=== PATIENT | male | born 1960 | race Caucasian/White ===

== ENCOUNTER → 2019-01-11 | Day surgery (SDC) | payer BC ==
[~2019-01-11] MED LIST: CIPRO500 MG PO; DIOVAN160 MG PO; FAMCICLOVIR500 MG PO; FENTANYL CITRATE/PF 100MCG/2 ML INJ ONE; HYOSCYAMINE SULFATE 0.5 MG/ML INJ ONE; LEVAQUIN500 MG PO; LEVOTHYROXINE50 MCG PO; LOSARTAN POTASS25 MG PO; MIDAZOLAM HCL 2 MG/2 ML VIAL ONE; NORCO 7.5-3251 EACH PO; PHENYLEPHRINE HCL 1% 10 MG/ML VIAL ONE; PROPOFOL IV EMULSION 10 MG/ML 50 ML VIAL ONE; VALACYCLOVIR500 MG PO; ZOFRAN ODT4 MG PO; ZOFRAN ODT8 MG PO
--- OUTSIDE RECORDS SUMMARY | 2019-01-11 06:56 | XMS REPORT | Clinical Summary ---
Author Author [facility] Address Unknown Phone Unavailable Care Team Providers Care Ship Pilot Name Role Phone Chong Guadalupe MD PCP Allergies Comments Active Allergy Reactions Severity Noted Date Sulfa (Sulfonamide Rash Low 06/19/2017 Antibiotics) Medications End Date Status Medication Sig Dispensed Refills Start Date Active valsartan (DIOVAN) 160 MG Take 160 mg 0 tablet by mouth every morning. Active tadalafil (CIALIS, Take 7 mg by 0 ADCIRCA) 10 MG tablet mouth daily. Active Problems Problem Noted Date Prostate cancer 07/04/2017 Family History Medical History Relation Name Comments Cancer Brother Prostate cancer Brother Cancer Father Lung cancer Father Breast cancer Mother Cancer Mother Relation Name Status Comments Brother Alive Father Mother Social History Date Tobacco Use Types Packs/Day Years Used Never Smoker Smokeless Tobacco: Never Used Alcohol Use Drinks/Week oz/Week Comments No Sex Assigned at Date Recorded Not on file Industry Job Start Date Occupation Not on file Not on file Not on file Travel End Travel History Travel Start No recent travel history available. Last Filed Vital Signs Not on file Plan of Treatment Health Maintenance Due Date Last Done Comments COLON CANCER SCREENING 2008 SHINGLES VACCINES (#1) 2008 INFLUENZA VACCINE 06/13/2018 Implants Device Identifier Shelf Expiration Date Model / Serial / Lot Implanted Type Area Manufactur er 3 / / Hemostat Absrbl 4x4in Surgicel Snow Cardiovasc N/A: N/A ETHICON - [id number] jairo [facility] Implanted: Qty: 1 on 07/04/2017 by Implants Chirag Wilder MD [id number] / / Clip Ligtng Hem-O-Ajay Endoscpc Aplr Surgical N/A: N/[facility] [id number] Implants; CLOSURE Implanted: 07/04/2017 (Quantity not Expanders; SYSTEMS on file) Extenders; Surgical Wires [id number] / / Kit Selnt Fibrin Humn Hmsts Surgy Surgical N/A: N/A ETHICON 5ml Evicel - [id number] Implants; US-EH Implanted: 07/04/2017 (Quantity not Expanders; on file) Extenders; Surgical Wires [id number] / / Clip Ligtng Hem-O-Ajay Endoscpc Aplr Surgical N/A: N/A EDD Ply Lg - [id number] Implants; CLOSURE Implanted: 07/04/2017 (Quantity not Expanders; SYSTEMS on file) Extenders; Surgical Wires [id number] / / Clip Ligtng Hem-O-Ajay Endoscpc Aplr Surgical N/A: N/A EDD Plymr Lg - [id number] Implants; CLOSURE Implanted: 07/04/2017 (Quantity not Expanders; SYSTEMS on file) Extenders; Surgical Wires [id number] / / Drain Wnd 1/4in 49in Rnd Mid Surgical BARD Perfrtn - [id number] Implants; MEDICAL Implanted: Qty: 1 on 07/04/2017 by Expanders; DIVISION Chirag Wilder MD Extenders; Surgical Wires Results Not on fileafter 01/10/2018 Insurance Payer Benefit Subscriber ID Type Phone Address Plan / Group VERONIKA XIMENARABIA OPEN xxxxxxxxxxx HMO ACCESS/NET WORK Advance Directives Patient has advance care planning documents, and code status on file. For more i nformation, please contact: Milton Franklin [address] [place] [address] Date Inactivated Comments Code Status Date Activated 07/06/2017 7:59 PM Full Code 07/04/2017 1:17 PM Code Status decision reached by: Patient
--- OUTSIDE RECORDS SUMMARY | 2019-01-11 06:56 | XMS REPORT ---
Author Author [facility] Address Unknown Phone Unavailable Care Team Providers Care Director Hospice Operations Name Role Phone Lily STAUFFER Unavailable Unavailable Problems This patient has no known problems. Allergies, Adverse Reactions, Alerts This patient has no known allergies or adverse reactions. Medications This patient has no known medications. Results Test Description Test Time Test Comments Text Results Atomic Results Result Comments ABDOMEN COMP INCL UPR or DECUB [place] [address] Patient Name: NADER FRASER MR #: [id number] : 1960 Age/Sex: 57/M Req #: [id number] Adm Physician: MIS STAUFFER MD Ordered by: HERRERA ALCOCER MD Report #: [id number] Location: MED/SURG2 Room/Bed: [facility] Procedure: DX/ABDOMEN COMP INCL UPR or DECUB Exam Date: 07/14/17 Exam Time: 0520 REPORT STATUS: Signed PROCEDURE: ABDOMEN COMP INCL UPR OR DECUB INDICATION: Small bowel obstruction. COMPARISON: [facility], DX, ABDOMEN ACUTE SERIES W/PA CXR, 07/13/2017, 5:08. FINDINGS: Patient has situs inversus totalis. Enteric tube is noted under the right hemidiaphragm coiled in the fundus, with distal tip likely in the stomach antrum. Persistent diffuse small bowel dilation, with multiple loops of bowel measuring approximately 4.8 cm. No air is noted in the rectum. No pneumoperitoneum. CONCLUSION: No significant interval change in diffuse small bowel air-filled, dilated loops, likely reflecting ileus or small bowel obstruction Osbaldo Gerard M.D. Dictated by: Osbaldo Gerard M.D. on 08/03/2017 at 19:37 Electronically approved by: Osbaldo Gerard M.D. on 08/03/2017 at 19:37 Dictated By: OSBALDO GERARD MD 36 Transcribed By: PRICILA on 08/03/171936 COPY TO: HERRERA ALCOCER MD ABDOMEN ACUTE SERIES W/PA CXR [place] [address] Patient Name: NADER FRASER MR #: [id number] : 1960 Age/Sex: 56/M Req #: [id number] Adm Physician: MIS STAUFFER MD Ordered by: MIS STAUFFER MD Report #: [id number] Location: MED/SURG2 Room/Bed: [facility] Procedure: [id number] DX/ABDOMEN ACUTE SERIES W/PA CXR Exam Date: 07/13/17 Exam Time: 0510 REPORT STATUS: Signed ABDOMEN ACUTE SERIES W/PA CXR Clinical history: Small bowel obstruction Technique: AP view abdomen Comparison: 07/11/2017 Findings: NG tube is again noted over the right upper quadrant, in keeping with situs inversus. There is diffuse gaseous distention of bowel loops, for example measuring up to 6 cm. This is without significant interval change. Impression: Stable diffuse gaseous distention of bowel from 07/11/2017. Scattered free air seen on prior CT not well appreciated. Signed by: Dr Poornima Mason MD on 07/14/2017 9:15 PM Dictated By: POORNIMA MASON MD 14 Transcribed By: REED on 07/14/172114 COPY TO: MIS STAUFFER MD ABDOMEN COMP INCL UPR or DECUB [place] [address] Patient Name: NADER FRASER MR #: [id number] : 1960 Age/Sex: 56/M Req #: [id number] Adm Physician: MIS STAUFFER MD Ordered by: HERRERA ALCOCER MD Report #: [id number] Location: [facility]/SURG3 Room/Bed: [facility] Procedure: [id number] DX/ABDOMEN COMP INCL UPR or DECUB Exam Date: 07/11/17 Exam Time: 1200 REPORT STATUS: Signed PROCEDURE: ABDOMEN COMP INCL UPR OR DECUB TECHNIQUE: INDICATION: Small bowel obstruction. COMPARISON: [facility], DX, ABDOMEN ACUTE SERIES W/PA CXR, 03/08/2016, 5:47. FINDINGS: See conclusion. CONCLUSION: 1. Enteric tube is coiled projecting in the stomach fundus, with distal tip projecting in the region of the distal body/antrum in the right upper quadrant (patient has situs inversus totalis). 2. Multiple dilated, air-filled loops of small bowel in the abdomen, with maximal measurement of approximately a 6.2 cm. Only a small amount of is noted in the rectum. 3. Lung bases are clear. 4. Left pelvic phlebolith. Mild degenerative changes at the symphysis pubis and bilateral hip joints. No acute bony abnormalities. 5. Preliminary report provided by Dr. Gerard 07/11/2017 at 1312 hrs. Osbaldo Gerard M.D. Dictated by: Osbaldo Gerard M.D. on 07/12/2017 at 14:02 Electronically approved by: Osbaldo Gerard M.D. on 07/12/2017 at 14:02 Dictated By: OSBALDO GERARD MD 140 Transcribed By: PRICILA on 07/12/17 140 COPY TO: HERRERA ALCOCER MD CT ABDOMEN/PELVIS W [place] [address] Patient Name: NADER FRASER MR #: [id number] : 1960 Age/Sex: 56/M Req #: [id number] Adm Physician: MIS STAUFFER MD Ordered by: MARI MONTANA MD Report #: [id number] Location: MED/SURG3 Room/Bed: [facility] Procedure: [id number] CT/CT ABDOMEN/PELVIS W Exam Date: 07/10/17 Exam Time: 1430 REPORT STATUS: Signed PROCEDURE: CT ABDOMEN AND PELVIS WITH CONTRAST TECHNIQUE: The abdomen and pelvis were scanned utilizing a multidetector helical scanner from the diaphragm to the lesser trochanter after the IV administration of 100 cc of Isovue 370 and the oral administration of dilute Gastrografin, prior history of. Coronal and sagittal multiplanar reformations were obtained. COMPARISON: [facility], CT, CT ABDOMEN/PELVIS W, 02/15/2016, 10:59. INDICATIONS: SMALL BOWEL OBSTRUCTION, POST PROSTATE REMOVAL ON MONDAY, prior history of colectomy due to colon cancer and history of Hirschsprung's disease FINDINGS: Patient has situs inversus totalis. LOWER THORAX: Linear subsegmental atelectasis or scarring in the left lower lung. HEPATOBILIARY: Diffuse hepatic steatosis with several wedge-shaped peripherally located areas of increased parenchymal attenuation in hepatic segment VIII and V, adjacent to the gallbladder fossa, likely representing areas of fatty sparing (for example, series 2, images 18 and 23). No focal lesions. No biliary ductal dilation. Gallbladder is unremarkable. SPLEEN: No splenomegaly. PANCREAS: No focal masses or ductal dilatation. ADRENALS: No adrenal nodules. KIDNEYS/URETERS: No hydronephrosis, stones, or solid mass lesions. PELVIC ORGANS/BLADDER: Mild to moderate circumferential bladder wall thickening. Townsend catheter in place. No focal lesions. Status post prostatectomy. PERITONEUM / RETROPERITONEUM: Multiple foci of air in the peritoneum, retroperitoneal, and subcutaneous tissues, likely postsurgical. LYMPH NODES: No lymphadenopathy. VESSELS: Bilateral calcification of the abdominal aorta. Celiac trunk, superior and inferior mesenteric, and bilateral renal arteries are patent. Portal, superior mesenteric, and splenic veins are patent. GI TRACT: Moderate to marked thickening of the anastomotic site between the small and residual large bowel in the left lower quadrant, with mild associated stranding. No definite stricture. Multiple dilated small bowel loops involving the distal jejunum and ileum are noted proximal to the anastomotic site, with maximal measurement of 4.6 cm. Moderate circumferential thickening of the rectum (series 2 image 79 and sagittal image 77). Stomach is unremarkable. BONES AND SOFT TISSUES: No acute bony abnormalities. Degen erative changes in the lower thoracic and to a lesser degree lower lumbosacral spine. Multiple subcutaneous air foci, with linear air collection tracking along the left transverse abdominis muscle (series 2 image 40). IMPRESSION: 1. Multiple foci of air in the peritoneum, retroperitoneum, subcutaneous tissues are likely postsurgical. 2. Findings in the anastomotic site may represent colitis, particularly given the findings in the rectum, however, new or recurrent neoplasm is also a consideration. 3. Findings in the small bowel likely represent ileus. No definite stricture is noted at the anastomotic site to suggest obstruction. 4. Mild circumferential thickening of the bladder. Correlate for cystitis. 5. Diffuse hepatic steatosis. 6. Findings discussed with Dr. Montana in the ER and preliminary report provided July 10, 2017 at 1515 Osbaldo Gerard M.D. Dictated by: Osbaldo Gerard M.D. on 07/12/2017 at 18:12 Electronically approved by: Osbaldo Gerard M.D. on 07/12/2017 at 18:12 Dictated By: OSBALDO GERARD MD 11 Transcribed By: PRICILA on 07/12/171811 COPY TO: MARI MONTANA MD
[2019-01-11 09:55] VITALS: BP 134/85
--- NOTE | 2019-01-11 15:23 | Operative Report ---
DATE OF PROCEDURE: 01/11/2019 SURGEON: Parmjit Sanford MD PROCEDURE: Colonoscopy with polypectomy. INDICATIONS FOR COLONOSCOPY: Surveillance colonoscopy, the patient is status post colon resection for colon cancer. MEDICATIONS: The patient was done under MAC. Please see anesthesiologist's note. PROCEDURE IN DETAIL: With the patient in the left lateral decubitus position, flexible fiberoptic Olympus colonoscope was inserted into the rectum with ease and advanced to the cecum. The cecum was at approximately 35 cm from the anal verge as the patient has had multiple colon resections in the remote past. Anastomosis was noted at approximately 26 cm from the anal verge and approximately 10 polyps were removed, 5 per snare electrocautery and 5 per hot biopsy forceps and those were just distal to the anastomosis. The rectum grossly appeared to be within normal limits. There were some postoperative changes noted in the distal rectum. The scope was then retroflexed into the distal rectum and it appeared to be within normal limits. The scope was then straightened out and it was subsequently withdrawn. The patient tolerated procedure well. IMPRESSION: 1. Cecum at approximately 35 cm from anal verge. 2. Anastomosis at approximately 26 cm from anal verge, intact. 3. Ten polyps, 5 snared and 5 hot biopsied just distal to anastomosis. PLAN: Followup histology. Initiate high-fiber, low-fat diet. Initiate high-fiber supplement. Parmjit Sanford MD [facility]/MODL /[id number] cc: MD Zion Griffiths DO
== END | disposition home or self-care (01) ==
LOC: OR 06:53
PROVIDERS: ATTEND Internal Medicine Gastroenterology
DX: Z08 Encounter for follow-up examination after completed treatment for malignant neoplasm (principal); Z85.038 Personal history of other malignant neoplasm of large intestine; Z98.0 Intestinal bypass and anastomosis status; Q43.1 Hirschsprung's disease; R19.7 Diarrhea, unspecified; H54.61 Unqualified visual loss, right eye, normal vision left eye; I10 Essential (primary) hypertension; E03.9 Hypothyroidism, unspecified; Z88.2 Allergy status to sulfonamides; Z01.810 Encounter for preprocedural cardiovascular examination; Z68.28 Body mass index [BMI] 28.0-28.9, adult
CPT/HCPCS: 45384; 45385; 93005; J1980; J2250; J2370; J2704; 45378

== ENCOUNTER 2019-01-19 14:16 | Inpatient (IN) | payer BC ==
[~2019-01-19] VITALS: Ht 167.6 cm; Wt 83.1 kg
[~2019-01-19 14:16] MED LIST changes: -FAMCICLOVIR500 MG PO; -FENTANYL CITRATE/PF 100MCG/2 ML INJ ONE; -HYOSCYAMINE SULFATE 0.5 MG/ML INJ ONE; -MIDAZOLAM HCL 2 MG/2 ML VIAL ONE; -PHENYLEPHRINE HCL 1% 10 MG/ML VIAL ONE; -PROPOFOL IV EMULSION 10 MG/ML 50 ML VIAL ONE; -VALACYCLOVIR500 MG PO
--- OUTSIDE RECORDS SUMMARY | 2019-01-19 14:20 | XMS REPORT | Clinical Summary ---
Author Author [facility] Address Unknown Phone Unavailable Care Team Providers Care Sign Installer Name Role Phone Chong Guadalupe MD PCP [...] Surgicel Snow Cardiovasc N/A: N/A ETHICON - [id number] jairo [facility] Implanted: Qty: 1 on 07/04/2017 by Implants Chirag Wilder MD [id number] / / Clip Ligtng Hem-O-Aajy Endoscpc Aplr Surgical N/A: N/A EDD [facility] - [id number] Implants; CLOSURE Implanted: 07/04/2017 (Quantity not Expanders; SYSTEMS on file) Extenders; Surgical Wires [id number] / / Kit Selnt Fibrin Humn Hmsts Surgy Surgical N/A: N/A ETHICON 5ml Evicel - [id number] Implants; US-EH Implanted: 07/04/2017 (Quantity not Expanders; on file) Extenders; Surgical Wires [id number] / / Clip Ligtng Hem-O-Ajay Endoscpc Aplr Surgical N/A: N/A EDD [facility] Lg - [id number] Implants; CLOSURE Implanted: 07/04/2017 (Quantity not Expanders; SYSTEMS on file) Extenders; Surgical Wires [id number] / / Clip Ligtng Hem-O-Ajay Endoscpc Aplr Surgical N/A: N/A EDD Plymr Lg - [id number] Implants; CLOSURE Implanted: 07/04/2017 (Quantity not Expanders; SYSTEMS on file) Extenders; Surgical Wires [id number] / / Drain Wnd 1/4in 49in Rnd Mid Surgical BARD Perfrtn - [id number] Implants; MEDICAL Implanted: Qty: 1 on 07/04/2017 by Expanders; DIVISION Chirag Wilder MD Extenders; Surgical Wires Results Not on fileafter 01/18/2018 Insurance Payer Benefit Subscriber ID Type Phone Address Plan / Group VERONIKA XIMENARABIA OPEN xxxxxxxxxxx HMO ACCESS/NET WORK Advance Directives Patient has advance care planning documents, and code status on file. For more i nformation, please contact: Milton Franklin [address] [place] [address] Date Inactivated Comments Code Status Date Activated 07/06/2017 7:59 PM Full Code 07/04/2017 1:17 PM Code Status decision reached by: Patient
[2019-01-19] MEDS ORDERED: HYOSCYAMINE SULFATE 0.5 MG/ML INJ ONE (14:29)
[2019-01-19] MEDS ORDERED: PROPOFOL IV EMULSION 10 MG/ML 50 ML VIAL ONE (14:29)
[2019-01-19] MEDS ORDERED: GLUCAGON FOR INJ 1 MG VIAL ONE (14:29)
[2019-01-19] MEDS ORDERED: LIDOCAINE HCL 2% LOCAL INJ 5 ML SDV VIAL INJ ONE (14:29)
[2019-01-19] MEDS ORDERED: PROPOFOL IV EMULSION 10 MG/ML 20 ML VIAL ONE (14:32)
[2019-01-19] MEDS ORDERED: EPHEDRINE SULFATE INJ 50 MG/10 ML SYR ONE (14:32)
[2019-01-19] MEDS ORDERED: PANTOPRAZOLE 40 MG 10ML VIAL IV NR (14:48)
[2019-01-19] MEDS ORDERED: SODIUM CHLORIDE 0.9% 1000ML 1,000 ML IV STA (14:48)
[2019-01-19 15:10] LABS: BASOPHILS # (AUTO) 0.1 (0.0-0.1); BASOPHILS % 0.5 % (0.0-1.0); EOSINOPHILS # (AUTO) 0.1 (0.0-0.4); EOSINOPHILS % 0.6 % (0.0-6.0); HEMATOCRIT 38.5 % (38.2-49.6); HEMOGLOBIN 12.7 g/dL (14.0-18.0); LYMPHOCYTES # (AUTO) 1.2 (1.0-3.2); LYMPHOCYTES % 11.8 % (18.0-39.1); MEAN CORPUSCULAR VOLUME 87.9 fL (81-99); MONOCYTES # (AUTO) 1.3 (0.2-0.8); MONOCYTES % 12.7 % (4.4-11.3); NEUTROPHILS # (AUTO) 7.7 (2.1-6.9); NEUTROPHILS % 73.8 % (38.7-80.0); PLATELET COUNT 258 x10e3/uL (140-360); RED BLOOD COUNT 4.38 x10e6/uL (4.3-5.7); RED CELL DISTRIBUTION WIDTH 13.2 % (11.7-14.4)
[2019-01-19 15:17] LABS: INR 0.94; PARTIAL THROMBOPLASTIN TIME 22.9 seconds (23.8-35.5); PROTHROMBIN TIME 13.1 seconds (11.9-14.5)
[2019-01-19] MEDS ORDERED: ATROPINE SULFATE 0.1 MG/ML 10ML SYR ONE (15:20)
[2019-01-19 15:27] LABS: ALANINE AMINOTRANSFERASE 16 IU/L (0-55); ALBUMIN 3.3 g/dL (3.5-5.0); ALBUMIN/GLOBULIN RATIO 1.1 (0.8-2.0); ALKALINE PHOSPHATASE 52 IU/L (40-150); ANION GAP 14.8 mmol/L (8-16); BLOOD UREA NITROGEN 17 mg/dL (7-26); BUN/CREATININE RATIO 16 (6-25); CALCIUM 9.3 mg/dL (8.4-10.2); CARBON DIOXIDE 20 mmol/L (22-29); CHLORIDE 107 mmol/L (98-107); CREATINE KINASE 61 IU/L (30-200); CREATININE, SERUM 1.05 mg/dL (0.72-1.25); EST GLOMERULAR FILTRATION RATE > 60 ML/MIN (60-); GLUCOSE 123 mg/dL (74-118); MAGNESIUM 2.1 MG/DL (1.3-2.1); POTASSIUM 3.8 mmol/L (3.5-5.1); SODIUM 138 mmol/L (136-145)
--- NOTE | 2019-01-19 16:32 | Diagnostic Imaging Report ---
EXAMINATION: CHEST SINGLE (PORTABLE) COMPARISON: None INDICATION: ^NEAR-SYNCOPE, GI BLEED ^20190119 ^1540 DISCUSSION: Frontal view of the chest obtained at 1545 hours. HEART AND MEDIASTINUM: The cardiomediastinal silhouette is unremarkable. LINES: None. LUNGS: Lung volumes are low with focal right infrahilar airspace opacity. Left lung is clear. No interstitial thickening. PLEURA: No pleural effusion or pneumothorax. BONES AND SOFT TISSUES: No focal osseous lesion. The soft tissues are normal. IMPRESSION: Right infrahilar airspace opacity may represent atelectasis or infiltrate. Recommend correlation with PA and lateral chest x-ray when clinically feasible. Signed by: Dr. Lizz Reddy MD on 01/19/2019 4:29 PM
[2019-01-19] MEDS ORDERED: ONDANSETRON HCL INJ 2MG/ML 2ML 2 MG/ML VIAL IV NR (17:00)
[2019-01-19] MEDS: SODIUM CHLORIDE 0.9% 1000ML 1,000 ML IV SCH ×3 (17:01→22:00)
--- OUTSIDE RECORDS SUMMARY | 2019-01-19 17:05 | XMS REPORT | Clinical Summary ---
Author Author [facility] Address Unknown Phone Unavailable Care Team Providers Care Automatic Die Cutting Machine Operator Name Role Phone Chong Guadalupe MD PCP [...] Surgicel Snow Cardiovasc N/A: N/A ETHICON - [id number] [place] [facility] [place]planted: Qty: 1 on 07/04/2017 by Implants Chirag Wilder MD [id number] / / Clip Ligtng Hem-O-Ajay Endoscpc Aplr Surgical N/A: N/[facility] [id number] Implants; CLOSURE Implanted: 07/04/2017 (Quantity not Expanders; SYSTEMS on file) Extenders; Surgical Wires [id number] / / Kit Selnt Fibrin Humn Hmsts Surgy Surgical N/A: N/A ETHICON 5ml Evicel - [id number] Implants; US-EH Implanted: 07/04/2017 (Quantity not Expanders; on file) Extenders; Surgical Wires [id number] / / Clip Ligtng Hem-O-Ajay Endoscpc Aplr Surgical N/A: N/A EDD [facility] Lg - [id number] Implants; CLOSURE Implanted: 07/04/2017 (Quantity not Expanders; SYSTEMS on file) Extenders; Surgical Wires [id number] / / Clip Ligtng Hem-O-Ajay Endoscpc Aplr Surgical N/A: N/A EDD Plymr Lg - [id number] Implants; CLOSURE Implanted: 07/04/2017 (Quantity not Expanders; SYSTEMS on file) Extenders; Surgical Wires [id number] / / Drain Wnd 1/4in 49in Rnd Mid Surgical BARD Perfrtn - [id number] Implants; MEDICAL Implanted: Qty: 1 on 07/04/2017 by Expanders; DIVISION Chirag Wilder MD Extenders; Surgical Wires Results Not on fileafter 01/18/2018 Insurance Payer Benefit Subscriber ID Type Phone Address Plan / Group VERONIKA XIMENARABIA OPEN xxxxxxxxxxx HMO ACCESS/NET WORK Advance Directives Patient has advance care planning documents, and code status on file. For more i nformation, please contact: Milton Franklin [address] [place] [address] Date Inactivated Comments Code Status Date Activated 07/06/2017 7:59 PM Full Code 07/04/2017 1:17 PM Code Status decision reached by: Patient
--- NOTE | 2019-01-19 17:12 | NUR ---
DR. GAR AT [facility] AT THIS TIME.
--- NOTE | 2019-01-19 18:53 | NUR ---
PATIENT ARRIVED TO ROOM 292 FROM ER AT THIS TIME. HE IS IN STABLE CONDITION. REPORT GIVEN TO NIGHT NURSE. CALL LIGHT WITHIN REACH. BED IN THE LOWEST POSITION.
[2019-01-19 19:25] VITALS: BP 124/64
--- NOTE | 2019-01-19 19:30 | NUR ---
patient received awake, alert, lying quietly in bed. vss. no c/o pain noted. ivf infusing without difficulty. admit assessment/history obtained. noted at the bedside. patient instructed to call for assistance when needed.
--- NOTE | 2019-01-19 19:30 | NUR ---
cbc collected and sent to lab per orders.
--- NOTE | 2019-01-19 19:59 | NUR ---
PER DR. GAR, IF HGB IS LESS THAN 10, TRANSFUSE 2 UNITS PRBC'S AND KEEP 2 UNITS PRBC'S ON HOLD
[2019-01-19 20:00] VITALS: BP 124/64
[2019-01-19 20:49] LABS: BASOPHILS % 0.2 % (0.0-1.0); EOSINOPHILS % 0.1 % (0.0-6.0); HEMATOCRIT 30.5 % (38.2-49.6); HEMOGLOBIN 10.1 g/dL (14.0-18.0); LYMPHOCYTES # (AUTO) 0.7 (1.0-3.2); LYMPHOCYTES % 5.8 % (18.0-39.1); MEAN CORPUSCULAR HEMOGLOBIN 29.4 pg (28-32); MEAN CORPUSCULAR HGB CONC 33.1 g/dL (31-35); MEAN CORPUSCULAR VOLUME 88.7 fL (81-99); MONOCYTES # (AUTO) 0.8 (0.2-0.8); NEUTROPHILS # (AUTO) 10.2 (2.1-6.9); NEUTROPHILS % 86.5 % (38.7-80.0); PLATELET COUNT 221 x10e3/uL (140-360); RED BLOOD COUNT 3.44 x10e6/uL (4.3-5.7); RED CELL DISTRIBUTION WIDTH 13.3 % (11.7-14.4)
[2019-01-19] MEDS ORDERED: VALACYCLOVIR500 MG PO (22:00)
--- NOTE | 2019-01-19 23:30 | NUR ---
cbc and second set of cardiac markers collected at this time and sent to lab per orders.
[2019-01-20] VITALS (8 sets, daily range): BP systolic 129–151; BP diastolic 63–79
[2019-01-20 01:44] LABS: BASOPHILS % 0.3 % (0.0-1.0); EOSINOPHILS % 0.2 % (0.0-6.0); HEMATOCRIT 27.5 % (38.2-49.6); HEMOGLOBIN 9.1 g/dL (14.0-18.0); LYMPHOCYTES # (AUTO) 0.9 (1.0-3.2); LYMPHOCYTES % 10.6 % (18.0-39.1); MEAN CORPUSCULAR HEMOGLOBIN 29.4 pg (28-32); MEAN CORPUSCULAR HGB CONC 33.1 g/dL (31-35); MONOCYTES # (AUTO) 1.1 (0.2-0.8); MONOCYTES % 12.7 % (4.4-11.3); NEUTROPHILS # (AUTO) 6.6 (2.1-6.9); NEUTROPHILS % 75.7 % (38.7-80.0); PLATELET COUNT 208 x10e3/uL (140-360); RED BLOOD COUNT 3.09 x10e6/uL (4.3-5.7); RED CELL DISTRIBUTION WIDTH 13.4 % (11.7-14.4)
[2019-01-20] MEDS ORDERED: SODIUM CHLORIDE 0.9% 250ML 250 ML IV ONE (02:00)
--- NOTE | 2019-01-20 03:00 | NUR ---
Patient to receive 2 units prbc's per orders. consent obtained for blood transfusion at this time.
--- NOTE | 2019-01-20 04:00 | NUR ---
first unit of prbc's initiated. blood verified with Guanakito PICKETT. Starting BP 135/66 HR 77 RR 20 TEMP 98.6 close monitoring continues.
--- NOTE | 2019-01-20 04:45 | NUR ---
blood continues to infuse without difficulty. no transfusion reaction noted. close monitoring continues.
[2019-01-20 05:10] LABS: CREATINE KINASE 36 IU/L (30-200)
--- NOTE | 2019-01-20 06:30 | NUR ---
blood transfusion complete. vss. no transfusion reaction noted.
--- NOTE | 2019-01-20 07:10 | NUR ---
RECEIVED PATIENT RESTING IN BED. RESPIRATIONS EVEN AND UNLABORED. NO ACUTE DISTRESS NOTED. DENIES PAIN OR DISCOMFORT. CALL LIGHT WITHIN REACH. BED IN THE LOWEST POSITION.
[2019-01-20] MEDS ORDERED: SODIUM CHLORIDE 0.9% 250ML 250 ML ONE (07:46)
--- NOTE | 2019-01-20 08:10 | NUR ---
SECOND UNIT OF PRBC INITIATED AT 0755. NO ADVERSE REACTION NOTED. WILL CONTINUE TO MONITOR.
[2019-01-20] MEDS: PANTOPRAZOLE 40 MG 10ML VIAL IV SCH ×2 (08:27→16:49)
--- NOTE | 2019-01-20 09:36 | NUR ---
NOTICED THAT LAB ORDER OF CBC FOR 1200 WAS CANCELLED BY LAB. CALLED LAB TO ASK REASON FOR CANCELLATION AND SPOKE TO RASHAUN, SHE STATED THE REASON WAS BECAUSE PATIENT IS CURRENTLY GETTING BLOOD. PER RASHAUN THEY WILL BE ABLE TO DRAW 2 HOURS AFTER BLOOD TRANSFUSION IS COMPLETED.
--- NOTE | 2019-01-20 11:39 | NUR ---
SECOND UNIT OF PRBC COMPLETED AT THIS TIME. NO ADVERSE REACTION NOTED. VS WNL. WILL CONTINUE TO MONITOR.
[2019-01-20] MEDS: SODIUM CHLORIDE 0.9% 1000ML 1,000 ML IV SCH ×2 (13:50→23:32)
[2019-01-20 14:27] LABS: BASOPHILS % 0.6 % (0.0-1.0); EOSINOPHILS # (AUTO) 0.1 (0.0-0.4); EOSINOPHILS % 0.8 % (0.0-6.0); HEMATOCRIT 34.9 % (38.2-49.6); HEMOGLOBIN 11.6 g/dL (14.0-18.0); LYMPHOCYTES % 14.4 % (18.0-39.1); MEAN CORPUSCULAR HEMOGLOBIN 29.3 pg (28-32); MEAN CORPUSCULAR HGB CONC 33.2 g/dL (31-35); MEAN CORPUSCULAR VOLUME 88.1 fL (81-99); MONOCYTES # (AUTO) 0.7 (0.2-0.8); MONOCYTES % 11.2 % (4.4-11.3); NEUTROPHILS # (AUTO) 4.8 (2.1-6.9); NEUTROPHILS % 72.5 % (38.7-80.0); PLATELET COUNT 184 x10e3/uL (140-360); RED BLOOD COUNT 3.96 x10e6/uL (4.3-5.7); RED CELL DISTRIBUTION WIDTH 13.4 % (11.7-14.4)
[2019-01-20 14:42] LABS: ALANINE AMINOTRANSFERASE 15 IU/L (0-55); ALBUMIN 2.9 g/dL (3.5-5.0); ALBUMIN/GLOBULIN RATIO 1.4 (0.8-2.0); ALKALINE PHOSPHATASE 42 IU/L (40-150); ANION GAP 9.2 mmol/L (8-16); BLOOD UREA NITROGEN 14 mg/dL (7-26); BUN/CREATININE RATIO 17 (6-25); CALCIUM 8.2 mg/dL (8.4-10.2); CARBON DIOXIDE 22 mmol/L (22-29); CHLORIDE 107 mmol/L (98-107); CREATININE, SERUM 0.81 mg/dL (0.72-1.25); EST GLOMERULAR FILTRATION RATE > 60 ML/MIN (60-); GLUCOSE 90 mg/dL (74-118); POTASSIUM 4.2 mmol/L (3.5-5.1); SODIUM 134 mmol/L (136-145)
[2019-01-20 15:01] LABS: CREATINE KINASE 41 IU/L (30-200)
[2019-01-20 19:20] LABS: BASOPHILS % 0.5 % (0.0-1.0); EOSINOPHILS # (AUTO) 0.1 (0.0-0.4); EOSINOPHILS % 0.8 % (0.0-6.0); HEMATOCRIT 33.6 % (38.2-49.6); HEMOGLOBIN 11.4 g/dL (14.0-18.0); LYMPHOCYTES # (AUTO) 1.2 (1.0-3.2); LYMPHOCYTES % 14.9 % (18.0-39.1); MEAN CORPUSCULAR HEMOGLOBIN 29.7 pg (28-32); MEAN CORPUSCULAR HGB CONC 33.9 g/dL (31-35); MEAN CORPUSCULAR VOLUME 87.5 fL (81-99); MONOCYTES # (AUTO) 0.7 (0.2-0.8); MONOCYTES % 9.5 % (4.4-11.3); NEUTROPHILS # (AUTO) 5.7 (2.1-6.9); NEUTROPHILS % 73.7 % (38.7-80.0); PLATELET COUNT 193 x10e3/uL (140-360); RED BLOOD COUNT 3.84 x10e6/uL (4.3-5.7); RED CELL DISTRIBUTION WIDTH 13.5 % (11.7-14.4)
--- NOTE | 2019-01-20 19:25 | NUR ---
Report given to oncoming nurse. Patient is resting in bed, respirations even and unlabored, no sob or acute distress noted. Call light within reach, bed in the lowest position.
--- NOTE | 2019-01-20 19:44 | NUR ---
RECEIVED PT IN BED AOX3 .DENIES PAIN RESPIRATIONS ARE EVEN AND UNLABORED .CALL LIGHT WITH IN REACH .CONTINUE TO MONITOR
[2019-01-21] VITALS (8 sets, daily range): BP systolic 104–156; BP diastolic 68–100
[2019-01-21 01:29] LABS: BASOPHILS % 0.5 % (0.0-1.0); EOSINOPHILS # (AUTO) 0.1 (0.0-0.4); EOSINOPHILS % 0.9 % (0.0-6.0); HEMATOCRIT 33.2 % (38.2-49.6); HEMOGLOBIN 11.2 g/dL (14.0-18.0); LYMPHOCYTES # (AUTO) 1.5 (1.0-3.2); LYMPHOCYTES % 17.9 % (18.0-39.1); MEAN CORPUSCULAR HEMOGLOBIN 29.6 pg (28-32); MEAN CORPUSCULAR HGB CONC 33.7 g/dL (31-35); MEAN CORPUSCULAR VOLUME 87.6 fL (81-99); MONOCYTES # (AUTO) 0.7 (0.2-0.8); MONOCYTES % 9.1 % (4.4-11.3); NEUTROPHILS # (AUTO) 5.8 (2.1-6.9); NEUTROPHILS % 71.2 % (38.7-80.0); PLATELET COUNT 196 x10e3/uL (140-360); RED BLOOD COUNT 3.79 x10e6/uL (4.3-5.7); RED CELL DISTRIBUTION WIDTH 13.5 % (11.7-14.4)
--- NOTE | 2019-01-21 02:11 | Consultation ---
DATE OF CONSULTATION: 01/20/2019 CARDIOLOGY CONSULT NOTE REASON FOR CONSULT: Bradycardia and near syncope. CHIEF COMPLAINT: GI bleeding. HISTORY OF PRESENT ILLNESS: The patient is a 58-year-old man, history of complete situs inversus, otherwise no cardiovascular issues, who presents with episodes of bright red blood per rectum for past couple of days. He also reports feeling very dizzy and lightheaded after one of the bowel movement and almost passing out. Denies any palpitations, any previous episodes of any cardiovascular issues or true syncope. In the ER, he was noted to have junctional rhythm, heart rate in the 40s; however, since he has been admitted on telemetry, he has been in normal sinus rhythm with heart rates in the 60s to 80s. PAST MEDICAL HISTORY: 1. Situs inversus. 2. Shingles, currently undergoing treatment. REVIEW OF SYSTEMS: As above, otherwise negative. SOCIAL HISTORY: Does not smoke, drink or abuse drugs. FAMILY HISTORY: Noncontributory. OUTPATIENT MEDICATIONS: Reviewed. ALLERGIES: THE PATIENT IS ALLERGIC TO SULFA. PHYSICAL EXAMINATION: VITAL SIGNS: Temperature afebrile, pulse 87, respiratory rate 18, blood pressure 134/72, saturating 98% on 2 L. GENERAL: Well-developed, well-nourished, middle-aged white male, in no acute distress. CARDIOVASCULAR: Regular rate and rhythm. No murmurs, rubs, or gallops. Viewed the situs inversus. His heart is on the right side. Palpable carotid pulses. Palpable radial pulses. LUNGS: Clear to auscultation bilaterally. ABDOMEN: Soft, nontender, nondistended. NEURO AND PSYCH: Alert and oriented to person, place, and time. Normal affect. INPATIENT MEDICATIONS: Reviewed. LABORATORY DATA: Reviewed, shows hemoglobin elvie of 9.1 at midnight last night. Since then, he has been transfused. IMAGING DATA: Reviewed. Chest x-ray with complete situs inversus. TELEMETRY DATA: Reviewed. Shows normal sinus rhythm. Mild heart rates are in the 80s. ASSESSMENT: 1. Junctional bradycardia. 2. Presyncope. 3. Situs inversus. PLAN: The patient's bradycardia was likely secondary to increased vagal tone due to GI distress. He has been in normal sinus rhythm since then, otherwise feeling fine. We will order echocardiogram to assess cardiovascular function. Continue to monitor on telemetry. Thank you for this consult. We will continue to follow. MD ELIANA Robertson/MEKHI /[id number]
[2019-01-21] MEDS: SODIUM CHLORIDE 0.9% 1000ML 1,000 ML IV SCH ×3 (03:50→18:09)
--- NOTE | 2019-01-21 05:52 | NUR ---
PT HAD 3X LIGHT DARK BM DURING THE SHIFT .NO C/O PAIN .CALL LIGHT WITH IN REACH .CONTINUE TO MONITOR
[2019-01-21 07:06] LABS: BASOPHILS % 0.4 % (0.0-1.0); EOSINOPHILS # (AUTO) 0.1 (0.0-0.4); EOSINOPHILS % 0.9 % (0.0-6.0); HEMATOCRIT 33.9 % (38.2-49.6); HEMOGLOBIN 11.3 g/dL (14.0-18.0); LYMPHOCYTES # (AUTO) 1.1 (1.0-3.2); MEAN CORPUSCULAR HEMOGLOBIN 29.6 pg (28-32); MEAN CORPUSCULAR HGB CONC 33.3 g/dL (31-35); MEAN CORPUSCULAR VOLUME 88.7 fL (81-99); MONOCYTES # (AUTO) 0.7 (0.2-0.8); NEUTROPHILS # (AUTO) 6.2 (2.1-6.9); NEUTROPHILS % 76.3 % (38.7-80.0); PLATELET COUNT 196 x10e3/uL (140-360); RED BLOOD COUNT 3.82 x10e6/uL (4.3-5.7); RED CELL DISTRIBUTION WIDTH 13.5 % (11.7-14.4)
--- NOTE | 2019-01-21 07:21 | NUR ---
REPORT GIVEN TO THE ON COMING NURSE
[2019-01-21 08:50] LABS: CREATINE KINASE 37 IU/L (30-200)
--- NOTE | 2019-01-21 09:15 | NUR ---
Pt received resting in bed. Alert and oriented x4 with saline lock #20 in right AC with fluids infusing. Saline lock #20 inserted into left wrist. Oriented to staff and surroundings, encouraged to press call osullivan if help needed. Emotional support given. Fall precautions maintained. Will monitor
[2019-01-21] MEDS: PANTOPRAZOLE 40 MG 10ML VIAL IV SCH ×2 (09:16→18:09)
--- NOTE | 2019-01-21 09:30 | NUR ---
ASSESSMENT: No spiritual concerns expressed Pt states, "God has this under control." Pt's son at bedside. Intervention: Provided empathic listening. Facilitated illness review. Provided information concerning availability of board certified music therapist. Outcome: No need to follow at this time. SHANTA WHITT Motor Transport Inspector Spiritual Care Department O: [phone] Pager: [phone] ([phone] number calling from)
[2019-01-21 11:59] LABS: BASOPHILS % 0.4 % (0.0-1.0); EOSINOPHILS % 0.4 % (0.0-6.0); HEMATOCRIT 34.8 % (38.2-49.6); HEMOGLOBIN 11.8 g/dL (14.0-18.0); LYMPHOCYTES # (AUTO) 0.9 (1.0-3.2); LYMPHOCYTES % 11.4 % (18.0-39.1); MEAN CORPUSCULAR HEMOGLOBIN 29.8 pg (28-32); MEAN CORPUSCULAR HGB CONC 33.9 g/dL (31-35); MEAN CORPUSCULAR VOLUME 87.9 fL (81-99); MONOCYTES # (AUTO) 0.5 (0.2-0.8); MONOCYTES % 6.9 % (4.4-11.3); NEUTROPHILS # (AUTO) 6.3 (2.1-6.9); NEUTROPHILS % 80.6 % (38.7-80.0); PLATELET COUNT 199 x10e3/uL (140-360); RED BLOOD COUNT 3.96 x10e6/uL (4.3-5.7); RED CELL DISTRIBUTION WIDTH 13.4 % (11.7-14.4)
[2019-01-21 12:35] LABS: INR 0.94; PROTHROMBIN TIME 13.1 seconds (11.9-14.5)
[2019-01-21 12:36] LABS: PARTIAL THROMBOPLASTIN TIME 27.4 seconds (23.8-35.5)
[2019-01-21] MEDS ORDERED: MIDAZOLAM HCL 2 MG/2 ML VIAL ONE (13:26)
[2019-01-21] MEDS ORDERED: FENTANYL CITRATE/PF 100MCG/2 ML INJ ONE (13:26)
[2019-01-21] MEDS ORDERED: CITRATE OF MAGNESIA 300ML BOTTLE PO ONE (14:00)
--- NOTE | 2019-01-21 14:03 | Progress Note ---
DATE: Cardiology Progress Note SUBJECTIVE: The patient reports improvement of his gastrointestinal bleeding. Denies any shortness of breath, palpitations, or chest pain. OBJECTIVE: VITAL SIGNS: Temperature is 98.4, heart rate 86, respirations are 18, blood pressure is 149/90, and oxygen saturation 97% on 2 L nasal cannula. GENERAL: He is well appearing, well built, no apparent distress. CARDIOVASCULAR: Regular rate and rhythm. LUNGS: Clear to auscultation. ABDOMEN: Soft, nontender. EXTREMITIES: No edema. LABORATORY DATA: Reviewed. Hemoglobin 11.3. Creatinine 0.81. Troponins negative x3. Telemetry monitoring reveals normal sinus rhythm. IMPRESSION: 1. Junctional bradycardia, resolved. 2. Presyncope. 3. Situs inversus. RECOMMENDATIONS: The patient's bradycardia was likely secondary to his acute gastrointestinal bleed and distress. He is remained in normal sinus rhythm. We will check a 2D echocardiogram to monitor function. Continue to monitor on telemetry while GI workup is ongoing. Carson Guadalupe DO BM/MODL /[id number]
[2019-01-21] MEDS: SOD PHOSPHATE/SOD BIPHOSPHATE ENEMA 132 ML BTL PR PRN (16:11)
--- NOTE | 2019-01-21 17:30 | NUR ---
Pt received s/p colonoscopy. No c/o pain or discomfort voiced. Emotional support given. Will monitor
[2019-01-21 18:49] LABS: BASOPHILS % 0.2 % (0.0-1.0); EOSINOPHILS % 0.2 % (0.0-6.0); HEMATOCRIT 36.4 % (38.2-49.6); HEMOGLOBIN 12.1 g/dL (14.0-18.0); LYMPHOCYTES % 5.7 % (18.0-39.1); MEAN CORPUSCULAR HEMOGLOBIN 29.3 pg (28-32); MEAN CORPUSCULAR HGB CONC 33.2 g/dL (31-35); MEAN CORPUSCULAR VOLUME 88.1 fL (81-99); MONOCYTES % 5.5 % (4.4-11.3); NEUTROPHILS # (AUTO) 15.7 (2.1-6.9); NEUTROPHILS % 87.8 % (38.7-80.0); PLATELET COUNT 222 x10e3/uL (140-360); RED BLOOD COUNT 4.13 x10e6/uL (4.3-5.7); RED CELL DISTRIBUTION WIDTH 13.3 % (11.7-14.4)
[2019-01-21 19:19] LABS: LYMPHOCYTES % (MANUAL) 10 % (19-48); MONOCYTES % (MANUAL) 7 % (3.4-9.0); NEUTROPHILS % (MANUAL) 78 % (40-74); PLATELET ESTIMATE ADEQUATE; PLATELET MORPHOLOGY COMMENT NORMAL; RBC MORPHOLOGY COMMENT NORMAL
--- NOTE | 2019-01-21 19:35 | NUR ---
Pt resting in bed with at bedside. Emotional support given. Call osullivan within reach. Endorsed to oncoming nurse.
--- NOTE | 2019-01-21 19:43 | NUR ---
RECEIVED PT IN BED AOX3 .PT HAD COLONOSCOPY .NO ACUTE DISTRESS NOTED .CONTINUE TO MONITOR
[2019-01-22] VITALS: BP 144/76
[2019-01-22] MEDS: SODIUM CHLORIDE 0.9% 1000ML 1,000 ML IV SCH ×2 (00:51→09:25)
--- NOTE | 2019-01-22 01:11 | Operative Report ---
DATE OF PROCEDURE: 01/21/2019 SURGEON: Parmjit Sanford MD PROCEDURE: Colonoscopy with hemoclipping. INDICATIONS FOR COLONOSCOPY: Rectal bleeding, possible post polypectomy bleed. The patient is status post colonoscopy with removal of 10 polyps in the recent past. MEDICATIONS: The patient was done under MAC. Please see anesthesiologist's note. PROCEDURE IN DETAIL: With the patient in left lateral decubitus position, flexible fiberoptic Olympus colonoscope was inserted into the rectum with ease and advanced all the way to the cecum, which was at 35 cm from the anal verge. The scope was then withdrawn slowly and the anastomosis was noted at approximately 26 cm from the anal verge. Multiple polypectomy sites were noted without active bleeding or stigmata of recent hemorrhage. At the largest post polypectomy site, there was a questionable stigmata of recent hemorrhage noted and that was hemoclipped x4. There was excellent hemostasis. The rectum appeared to be within normal limits. The scope was then retroflexed into the distal rectum and some postoperative changes were noted. The scope was then straightened out, it was subsequently withdrawn. The patient tolerated the procedure well. IMPRESSION: 1. Cecum at 35 cm from the anal verge. 2. Anastomosis approximately 26 cm from the anal verge. 3. Hemoclips x4 applied to largest post polypectomy site with questionable stigmata of recent hemorrhage. The patient tolerated procedure well. PLAN: Follow H and H. Initiate clear liquid diet. Parmjit Sanford MD [facility] /[id number] cc: Zion Guadalupe DO
[2019-01-22 04:00] VITALS: BP 156/78
--- NOTE | 2019-01-22 05:56 | NUR ---
PT RESTING .PT HAD 2 BM DURING THE SHIFT .NO BLEEDING NOTED .CONTINUE TO MONITOR CALL LIGHT WITH REACH .
[2019-01-22 06:16] LABS: BASOPHILS % 0.3 % (0.0-1.0); EOSINOPHILS % 0.3 % (0.0-6.0); HEMATOCRIT 35.2 % (38.2-49.6); LYMPHOCYTES % 9.7 % (18.0-39.1); MEAN CORPUSCULAR HEMOGLOBIN 29.7 pg (28-32); MEAN CORPUSCULAR HGB CONC 34.1 g/dL (31-35); MEAN CORPUSCULAR VOLUME 87.1 fL (81-99); MONOCYTES # (AUTO) 0.6 (0.2-0.8); MONOCYTES % 6.1 % (4.4-11.3); NEUTROPHILS # (AUTO) 8.3 (2.1-6.9); NEUTROPHILS % 83.1 % (38.7-80.0); PLATELET COUNT 220 x10e3/uL (140-360); RED BLOOD COUNT 4.04 x10e6/uL (4.3-5.7); RED CELL DISTRIBUTION WIDTH 13.2 % (11.7-14.4)
[2019-01-22 08:00] VITALS: BP 138/78
[2019-01-22 09:25] VITALS: BP 138/78
[2019-01-22] MEDS: PANTOPRAZOLE 40 MG 10ML VIAL IV SCH ×2 (09:25→17:16)
--- NOTE | 2019-01-22 09:25 | NUR ---
Pt received resting in bed. Pt has Shingles to right middle back. As per Infectious disease nurse, pt needs to be on droplet, and contact isolation. All meds given as ordered. Emotional support given. Call osullivan within reach. Will monitor
[2019-01-22 10:52] LABS: BASOPHILS % 0.4 % (0.0-1.0); EOSINOPHILS # (AUTO) 0.1 (0.0-0.4); EOSINOPHILS % 0.6 % (0.0-6.0); HEMATOCRIT 37.3 % (38.2-49.6); HEMOGLOBIN 12.4 g/dL (14.0-18.0); LYMPHOCYTES # (AUTO) 0.8 (1.0-3.2); LYMPHOCYTES % 8.3 % (18.0-39.1); MEAN CORPUSCULAR HEMOGLOBIN 29.3 pg (28-32); MEAN CORPUSCULAR HGB CONC 33.2 g/dL (31-35); MEAN CORPUSCULAR VOLUME 88.2 fL (81-99); MONOCYTES # (AUTO) 0.6 (0.2-0.8); MONOCYTES % 5.5 % (4.4-11.3); NEUTROPHILS # (AUTO) 8.4 (2.1-6.9); NEUTROPHILS % 84.5 % (38.7-80.0); PLATELET COUNT 229 x10e3/uL (140-360); RED BLOOD COUNT 4.23 x10e6/uL (4.3-5.7); RED CELL DISTRIBUTION WIDTH 13.3 % (11.7-14.4)
[2019-01-22 11:45] VITALS: BP 158/92
--- NOTE | 2019-01-22 14:09 | Progress Note ---
DATE: 01/22/2019 Cardiology progress note SUBJECTIVE: The patient denies chest pain or shortness of breath. OBJECTIVE: VITAL SIGNS: Temperature 97.2 degrees, pulse 96, respiratory rate 18, blood pressure 138/70, oxygen saturation 96%. GENERAL: Awake, alert, no acute distress. LUNGS: Clear to auscultation bilaterally. No wheeze or crackles. CARDIOVASCULAR: Normal rate. Regular rhythm. No murmur. Normal S1, S2. ABDOMEN: Soft, nontender. EXTREMITIES: No edema. CARDIAC MEDICATIONS: None. LABORATORY DATA: CBC 9.91, hemoglobin 12.4, hematocrit 37.3, platelets 229. Sodium 134, potassium 4.2, chloride 107, CO2 22, BUN 14, creatinine 0.81. Troponin less than 0.001. Telemetry, normal sinus rhythm. IMPRESSION: 1. Junctional bradycardia, resolved. 2. Presyncope. 3. Situs inversus. 4. Gastrointestinal bleeding. RECOMMENDATIONS: Monitor the patient on telemetry. No further episodes of bradycardia have been noted. Echocardiogram has been done. We will review the images. We will continue. Thank you for this consult. We will continue to follow. Mami Dc MD ABS/MODL /[id number]
[2019-01-22 15:53] VITALS: BP 154/81
[2019-01-22] MEDS ORDERED: FAMCICLOVIR500 MG PO (16:15)
--- NOTE | 2019-01-22 18:55 | NUR ---
Pt given discharge instructions regarding meds, diet, activities, Shingles, and follow up appointment. Pt verbalized understanding of teaching. Advised to stay away from Elderly, children, and women. Left in wheelchair to private car
== END 2019-01-22 19:00 | disposition home or self-care (01) | DRG 920 ==
LOC: ER 14:16 → ERHOLD 17:01 → MED/SURG3 18:54
PROC: 30233N1 Transfusion of Nonautologous Red Blood Cells into Peripheral Vein, Percutaneous Approach (ICD-10-PCS; 2019-01-20)
PROC: 0W3P8ZZ Control Bleeding in Gastrointestinal Tract, Via Natural or Artificial Opening Endoscopic (ICD-10-PCS; principal; 2019-01-21 16:32)
DX: K91.840 Postprocedural hemorrhage of a digestive system organ or structure following a digestive system procedure (principal); Q89.3 Situs inversus; D62 Acute posthemorrhagic anemia; R55 Syncope and collapse; R00.1 Bradycardia, unspecified; I10 Essential (primary) hypertension; Z85.46 Personal history of malignant neoplasm of prostate; Z85.038 Personal history of other malignant neoplasm of large intestine; Z88.2 Allergy status to sulfonamides; Z86.010 Personal history of colon polyps; K63.89 Other specified diseases of intestine; Z98.0 Intestinal bypass and anastomosis status; B02.9 Zoster without complications; E03.9 Hypothyroidism, unspecified
CPT/HCPCS: 36415; 44391; 45378; 71045; 80053; 82550; 82553; 82948; 83735; 84484; 85025; 85610; 85730; 86850; 86900; 86920; 93005; 93306; 96361; 99284; J1610; J1980; J2001; J2250; J2405; J7030; J7050; P9016

== ENCOUNTER 2020-08-31 02:03 | Emergency (ER) | payer BC ==
[~2020-08-31] VITALS: Ht 167.6 cm; Wt 83.0 kg
[~2020-08-31 02:03] MED LIST changes: +FAMCICLOVIR500 MG PO; +VALACYCLOVIR500 MG PO
[2020-08-31 02:46] LABS: BASOPHILS % 0.6 % (0.0-1.0); EOSINOPHILS # (AUTO) 0.2 (0.0-0.4); EOSINOPHILS % 2.1 % (0.0-6.0); HEMATOCRIT 37.7 % (38.2-49.6); HEMOGLOBIN 12.6 g/dL (14.0-18.0); LYMPHOCYTES % 13.5 % (18.0-39.1); MEAN CORPUSCULAR HEMOGLOBIN 29.2 pg (28-32); MEAN CORPUSCULAR HGB CONC 33.4 g/dL (31-35); MEAN CORPUSCULAR VOLUME 87.3 fL (81-99); MONOCYTES # (AUTO) 0.7 (0.2-0.8); MONOCYTES % 9.7 % (4.4-11.3); NEUTROPHILS # (AUTO) 5.3 (2.1-6.9); NEUTROPHILS % 73.8 % (38.7-80.0); PLATELET COUNT 233 x10e3/uL (140-360); RED BLOOD COUNT 4.32 x10e6/uL (4.3-5.7); RED CELL DISTRIBUTION WIDTH 13.4 % (11.7-14.4)
[2020-08-31 02:57] LABS: CALCIUM 9.2 mg/dL (8.4-10.2); CREATININE, SERUM 1.39 mg/dL (0.72-1.25)
[2020-08-31 03:08] LABS: BILIRUBIN,URINE NEGATIVE (NEGATIVE); CLARITY,URINE CLOUDY (CLEAR); COLOR,URINE ORANGE (YELLOW); KETONES,URINE TRACE (NEGATIVE); LEUKOCYTE ESTERASE ,URINE NEGATIVE (NEGATIVE); NITRITE,URINE POSITIVE (NEGATIVE); PROTEIN,URINE DIPSTICK 1+ (NEGATIVE); URINE UROBILINOGEN 1 mg/dL (0.2 - 1)
[2020-08-31 03:16] LABS: BACTERIA,URINE FEW /HPF; EPITHELIAL CELLS,URINE FEW /LPF; RBC,URINE >50 /HPF (0-5); TRANSITIONAL EPI CELLS,URINE FEW
[2020-08-31 03:17] LABS: WBC,URINE (MAN) 21-50 /HPF (0-5)
== END 2020-08-31 03:25 | disposition home or self-care (01) ==
LOC: ER 02:14
DX: R33.9 Retention of urine, unspecified (principal); N39.0 Urinary tract infection, site not specified; R10.30 Lower abdominal pain, unspecified; I10 Essential (primary) hypertension; Z85.46 Personal history of malignant neoplasm of prostate; Z85.038 Personal history of other malignant neoplasm of large intestine
CPT/HCPCS: 36415; 51700; 80048; 81001; 85025; 87086; 99283